=== PATIENT | female | born 1930 | race Caucasian/White ===

== ENCOUNTER 2017-03-26 14:47 | Emergency (ER) | payer MEDICARE ==
[~2017-03-26] VITALS: Ht 157.5 cm; Wt 45.5 kg
[2017-03-26 14:54] VITALS: BP 190/68; PULSE 75; RESP 16; O2SAT 100
--- NOTE | 2017-03-26 15:05 | ED.REPORT ---
HPI-Abd Pain F 40 and Over Date of Service Mar 26, 2017 ED Provider: Santi Myles MD The pt is an 86 year old female with a history of Alzheimer's disease, hypertension, remote bowel cancer (now in remission), chronic hip and low back pain, smoking for many years and no cardiac history who is brought to the ED via EMS from a memory care facility due to chest pain. History is limited by pt' s underlying dementia but she was reportedly pointing at her chest at the memory care facility, presumably secondary to chest pain. She seemed very anxious. The pain would then appear to resolve. Paramedics found the pt hypertensive. The pt denies shortness of breath. The pt reportedly had an episode of high blood pressure with nonvertiginous dizziness several months ago and was prescribed Meclizine at that time, which she was given "once or twice." She does not take any antihypertensive medications. She has also experienced episodes of chest pain in the past which have been attributed to anxiety. The pt takes aspirin 81 mg daily but no other blood thinners. She does not take blood pressure medications. Nursing Notes Stated Complaint: CHEST PAIN Chief Complaint: Chest Pain Nursing Notes Reviewed: Yes Allergies: Coded Allergies: Cephalosporins (Verified Allergy, Unknown, 03/26/17) Penicillins (Verified Allergy, Unknown, 03/26/17) codeine (Verified Allergy, Unknown, 03/26/17) meperidine (Verified Allergy, Unknown, 03/26/17) morphine (Verified Allergy, Unknown, 03/26/17) Uncoded Allergies: Bee Stings (Allergy, Unknown, 08/01/07) TRIMALIN,DRAKARAL,DEANGULANT (Allergy, Unknown, 03/16/04) iodine Contrast (Allergy, Unknown, 08/01/07) sypathomimetics (Allergy, Unknown, 08/01/07) Scheduled ([alteril]) 2 TAB PO HS Aspirin (Aspirin) 81 Mg Tablet 81 MG PO DAILY Hydrocodone-Acetaminophen 5-325 mg (Hydrocodone-Acetaminophen 5-325 mg) 1 Each Tablet 1 TABLET PO BID Levothyroxine (Levothyroxine) 50 Mcg Tablet 50 MCG PO DAILY Lisinopril (Lisinopril) 10 Mg Tablet 10 MG PO DAILY Scheduled PRN Acetaminophen (Acetaminophen) 325 Mg Capsule 650 MG PO q4hr PRN PRN For Pain Bisacodyl (Bisacodyl Rectal) 10 Mg/30 Ml Enema 10 MG RC PRN PRN PRN constip Bismuth Subsalicylate (Digestive Relief) 262 Mg/15 Ml Oral.susp 30 ML PO PRN For Diarrhea or Loose Stool Hydrocodone-Acetaminophen 5-325 mg (Hydrocodone-Acetaminophen 5-325 mg) 1 Each Tablet 1 TABLET PO q6hr PRN PRN For Pain Mag Hydrox/Al Hydrox/Simeth (Antacid M Liquid) 355 Ml Oral.susp 30 ML PO PRN heartburn Magnesium Hydroxide (Milk of Magnesia) 400 Mg/5 Ml Oral.susp 30 ML PO daily for 3 days PRN PRN constip Meclizine (Bonine) 25 Mg Tab.chew 25 MG PO TID PRN PRN dizziness General Time Seen by MD: 15:01 Chief Complaint Other (Chest pain) Hx Obtained From: Daughter, EMS Arrived By: Ambulance Sudden in Onset?: Yes Onset Occurred: 1 - 4 hours ago Recent Healthcare: No recent hospitalization, Recent doctor visit Similar Sx Previous: Yes Past Medical History Past Medical History Alzheimer's disease hypertension distant bowel cancer chronic hip and low back pain Past Surgical History Reports: Cholecystectomy, Hysterectomy Smoking History Unknown if Ever Smoker Social History [facility] Other Social History: Good social support Ambulatory Status Independent Review of Systems ROS limited by pt mental status Respiratory: Denies: Non-productive cough, Shortness of breath Cardiovascular: Reports: Chest pain GI: Denies: Abdominal pain, Vomiting Musculoskeletal: Denies: Back pain, Neck pain Complete sys rev & neg: except as marked. Physical Exam Vital Signs Vital Signs (First) Date Time Temp Pulse Resp B/P Pulse Ox O2 Delivery O2 Flow Rate FiO2 03/26/17 14:54 36.4 75 16 190/68 100 Room Air Initial VS: Reviewed General/Constitutional: Awake, Alert Respiratory / Chest: Atraumatic, Breath sounds NL, Breath sounds = bilat, No respiratory distress Cardiovascular: Heart rate NL, Regular rhythm, Heart sounds NL, No gallop, No murmurs, No rubs Abdomen: Atraumatic, Soft, Non-tender, No distention Back: Atraumatic, Full range of motion Head / Eyes: Atraumatic, Normocephalic, PERRL, EOMI ENT: Atraumatic, Airway patent, Mucous membranes moist Skin: Atraumatic, Color NL, No rash, Warm, Dry Neurologic: Speech NL, No motor deficits, No sensory deficits Neck: Atraumatic, Supple, Full range of motion Upper Extremity / MS: Atraumatic, Full range of motion Lower Extremity / Pelvis / MS: Atraumatic, Full range of motion no calf swelling or tenderness Interpretation & Diagnostics Lab Results Interpretation Result Diagram: 03/26/17 1630 03/26/17 1630 Test 03/26/17 16:30 03/26/17 16:33 White Blood Count 7.3th/mm3 (3.8-10.1) Red Blood Count 4.24mil/mm3 (3.90-5.20) Hemoglobin 13.1g/dL (12.0-15.6) Hematocrit 38.7% (35.0-46.0) Mean Corpuscular Volume 91.3fL (81-100) Mean Corpuscular Hemoglobin 30.9pg (27.0-35.0) Mean Corpuscular Hemoglobin Concent 33.9% (32.0-37.0) Red Cell Distribution Width 12.9% (12.3-15.4) Platelet Count 186bil/L (150-400) Neutrophils (%) (Auto) 65.4% (40-74) Lymphocytes (%) (Auto) 26.8% (14-46) Monocytes (%) (Auto) 5.9% (4-12) Eosinophils (%) (Auto) 1.2% (0-5) Basophils (%) (Auto) 0.6% (0-3) Sodium Level 144mEq/L (134-144) Potassium Level 3.7mEq/L (3.5-5.2) Chloride Level 105mEq/L (97-108) Carbon Dioxide Level 24mmol/L (18-29) Blood Urea Nitrogen 17mg/dL (8-27) Creatinine 0.73mg/dL (0.57-1.00) Estimat Glomerular Filtration Rate 108mL/min (>59) Glucose Level 91mg/dL (60-99) Calcium Level 10.0mg/dL (8.5-10.1) Magnesium Level 2.2mg/dL (1.6-2.6) Total Bilirubin 0.3mg/dL (0.0-1.2) Aspartate Amino Transf (AST/SGOT) 20U/L (0-50) Alanine Aminotransferase (ALT/SGPT) 15U/L (0-32) Alkaline Phosphatase 82U/L (25-165) Troponin T < 0.010ug/L (0.0-0.011) Total Protein 7.2g/dL (6.4-8.4) Albumin 4.1g/dL (3.4-5.0) Hold Pride Top Tube Received (Received) ECG Interpretation ECG Interpretation: normal sinus rhythm with a rate of 63 LBBB when compared to prior dated 08/03/2007, LBBB is not new Time: 16:36 Interpreted by: ED physician X-Ray Chest Interpretation Chest Xray Interpretation: IMPRESSION: Acute disease is not seen in the upright portable chest. Dictated by: Latrell Yoon M.D. on 03/26/2017 at 15:26 Approved by: Latrell Yoon M.D. on 03/26/2017 at 15:27 Interpretation / Wet Read by: Javan read ED physician Re-Eval/Medical Decision Med Decision/Clinical Course In summary, the patient is an 86-year-old female with a history of dementia who resides at a memory care facility and is brought into the emergency department due to possible episodes of chest discomfort during which she was noted to appear anxious and was pointing at her chest. Here in the emergency department she is accompanied by her daughter. She is calm, smiling, comfortable and denies any complaints or symptoms whatsoever. The patient is noted to be hypertensive with a systolic blood pressure ranging from 150-200 though on repeated examinations she consistently denies any symptoms whatsoever. Her examination is completely unremarkable without any neurologic deficits. EKG: normal sinus rhythm with a rate of 63 LBBB when compared to prior dated 08/03/2007, LBBB is not new CBC unremarkable CMP unremarkable Troponin negative CXR: Obtained, reviewed and interpreted by myself shows no evidence of infiltrates, effusions or pneumothorax. Cardiac and mediastinal silhouette normal. No bony or soft tissue abnormalities. I had a long discussion with the patient's daughter regarding goals of care. The patient is DO NOT RESUSCITATE/DO NOT INTUBATE and her primary goals of treatment our comfort. I reviewed the patient's workup thus far which reveals no acute ischemic changes on EKG and a negative troponin. The patient is noted to be without any shortness of breath, pleuritic symptoms, tachycardia, tachypnea or low oxygen saturation. Examination reveals no findings suggestive of DVT. We feel that she is relatively low risk for pulmonary embolism and that she does not require workup for PE. I explained to the patient's daughter that we cannot definitively rule out acute coronary syndrome without additional cardiac testing and likely admission to the hospital. The patient remained completely comfortable and asymptomatic and the patient's daughter did not feel that was within her mother's goals of care or wishes to be admitted to the hospital and receive further workup. They would like her to be sent back to the [facility] and they will follow up with her primary care physician on an outpatient basis. I feel that this is appropriate. Given the patient's high blood pressure I called her primary care physician's office and we opted to start her on lisinopril. She was given her first dose here in the emergency room. She will be called by her primary care doctor tomorrow morning for a follow-up appointment. She remains hypertensive. She has close follow- up and has been started on a blood pressure medication and we do not feel that she needs to remain in the emergency department or undergo aggressive blood pressure lowering at this moment. Prior to discharge follow-up and return precautions were reviewed in detail with the patient who verbalized understanding and agreement with the plan. The patient was discharged in stable condition. Source of Hx: Old records Re-Evaluation/Progress : Time of Eval: 17:22 Patient Status: Condition improved Re-Evaluation/Progress Note: Pt rechecked, who is resting. The diagnosis and plan for discharge are discussed. The pt's family understands and agrees with the plan. All questions are addressed at this time. Consultation : Call Returned at: 17:37 Consulting Psychiatrist: Agrees with eval, Agrees with plan Note: Consulted with physician provider relations advocate for pt's PCP (Dr. Lozano). Physician agrees with the evaluation and plan. Counseled Regarding: Diagnosis, Lab results, Need for follow-up, When/why to return to ED Discharge & Departure Primary Impression: Hypertension Hypertension type: unspecified secondary hypertension Qualified Code: I15.9 - Secondary hypertension, unspecified Additional Impressions: Chest pain Chest pain type: unspecified Qualified Code: R07.9 - Chest pain, unspecified Anxiety Dementia Dementia type: Alzheimer's disease Alzheimer's disease onset: unspecified onset Dementia behavioral disturbance: with behavioral disturbance Qualified Code: G30.8 - Other Alzheimer's disease Disposition: Home Discharge Condition All VS Reviewed: Yes Condition: Stable Patient Instructions: Hypertension (ED) Additional Instructions: Thank you for seeking care at the emergency room. It is difficult for us to make definitive diagnoses in the ED but we believe that you are experiencing a muscle spasm. Our primary goal today in the Emergency Department was to evaluate you for any life-threatening conditions. Your evaluation was very reassuring. Apply ice packs and heat to the affected areas. You will be discharged with a prescription for lisinopril 10 mg daily. Please take this as directed. You should follow-up with your primary doctor in the next week. You should return to the Emergency Department immediately if you develop fevers , vomiting, cough, shortness of breath, chest pain, lightheadedness, weakness or any other concerning signs or symptoms. Thank you for letting us partake in your care today. Referrals: Catalino Lozano MD (PCP) Scribe Attestation Portions of this note were transcribed by Alisson Ball. I, Dr. Myles personally performed the history, physical exam and medical decision-making; I reviewed and confirmed the accuracy of the information in the transcribed note. copies to: Catalino Lozano MD, Beck O MD Mar 26, 2017 15:05 ALISSON BALL Mar 26, 2017 15:44
--- NOTE | 2017-03-26 15:28 | DRSVH ---
PROCEDURE: X-RAY CHEST ONE VIEW, PORTABLE ([id number]) INDICATIONS: chest pain TECHNIQUE: One view of the chest was acquired. COMPARISON: [facility], , CHEST 1VW (PORTABLE), 08/01/2007, 5:47. 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 Lungs and pleura: No pleural effusions or pneumothorax. Lungs are clear. Mediastinum: Mediastinal contours appear normal. Heart size is normal. Bones and chest wall: No suspicious bony lesions. Overlying soft tissues appear unremarkable. IMPRESSION: Acute disease is not seen in the upright portable chest. Dictated by: Latrell Yoon M.D. on 03/26/2017 at 15:26 Approved by: Latrell Yoon M.D. on 03/26/2017 at 15:27
[2017-03-26 16:40] LABS: BASOPHILS % (AUTO) 0.6 % (0-3); EOSINOPHILS % (AUTO) 1.2 % (0-5); MONOCYTES % (AUTO) 5.9 % (4-12); Mean Corpuscular Hemoglobin 30.9 pg (27.0-35.0); Mean Corpuscular Volume 91.3 fL (81-100); NEUTROPHILS % (AUTO) 65.4 % (40-74); Platelet Count 186 bil/L (150-400)
[2017-03-26 16:45] VITALS: BP 158/84
[2017-03-26 17:13] LABS: Magnesium 2.2 mg/dL (1.6-2.6)
[2017-03-26 17:15] LABS: TROPONIN T < 0.010 ug/L (0.0-0.011)
[2017-03-26] MEDS ORDERED: LISI10TA PO (17:39)
[2017-03-26 17:50] VITALS: BP 200/64; PULSE 65; O2SAT 100
[2017-03-26] MEDS ORDERED: LEVO50TA6 PO (18:36)
[2017-03-26] MEDS ORDERED: MAGN400O4 PO (18:36)
[2017-03-26] MEDS ORDERED: MAG355OR31 PO (18:36)
[2017-03-26] MEDS ORDERED: alteril PO (18:36)
[2017-03-26] MEDS ORDERED: HYDR-4003 PO ×2 (18:36)
[2017-03-26] MEDS ORDERED: MECL-114 PO (18:36)
[2017-03-26] MEDS ORDERED: ASPI-973 PO (18:36)
[2017-03-26] MEDS ORDERED: ACET325C PO (18:36)
[2017-03-26] MEDS ORDERED: BISA10EN RC (18:36)
[2017-03-26] MEDS ORDERED: BISM-95 PO (18:36)
== END 2017-03-26 18:25 | disposition home or self-care (01) ==
LOC: SED 14:47
DX: I15.9 Secondary hypertension, unspecified (principal); R07.9 Chest pain, unspecified; F41.9 Anxiety disorder, unspecified; G30.8 Other Alzheimer's disease; Z87.891 Personal history of nicotine dependence; Z90.49 Acquired absence of other specified parts of digestive tract; Z85.038 Personal history of other malignant neoplasm of large intestine; Z79.82 Long term (current) use of aspirin; Z88.1 Allergy status to other antibiotic agents; Z88.0 Allergy status to penicillin; Z88.5 Allergy status to narcotic agent; Z88.8 Allergy status to other drugs, medicaments and biological substances